=== PATIENT | male | born 1985 | race Caucasian/White ===

== ENCOUNTER 2020-07-24 12:14 | Emergency (ER) | payer BC, SELFPAY ==
--- NOTE | 2020-07-24 12:15 | XRR_ITS ---
PROCEDURE INFORMATION: Exam: XR Right Wrist Exam date and time: 07/24/2020 12:34 PM Age: 35 years old Clinical indication: Injury or trauma; Fall; Blunt trauma (contusions or hematomas); Wrist; Right TECHNIQUE: Imaging protocol: XR Right wrist. Views: 3 or more views. COMPARISON: No relevant prior studies available. FINDINGS: Bones/joints: Negative for acute bony abnormality. Soft tissues: Normal. XR/XR wrist RT min 3V* [id number] IMPRESSION: No acute findings.
[2020-07-24 12:24] VITALS: BP 114/70; PULSE 77; RESP 18; TEMP 36.8; O2SAT 98; BMI 23.3
--- NOTE | 2020-07-24 12:39 | W.ED.EXTPRO ---
HPI - Extremity Problem General: Chief complaint: Extremity Injury, Upper Stated complaint: Fall, injury to right wrist Time Seen by Provider: 07/24/20 12:19 History of Present Illness: HPI Narrative: Complains about right wrist pain times couple months. Was seen at [facility] diagnosed with carpal tunnel given a brace. Patient says he fell at work today and his wrist is hurting more now. Has complained about numbness tingling to his fingers from the start. 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 MD Complaint: extremity pain Onset (ago): month(s) Pain Consistency: intermittent Location: right and upper extremity Severity scale (1-10): 3 Quality: aching Radiation: none Relieving factors: immobilization Exacerbating factors: range of motion Associated symptoms: Reports no associated symptoms; Deny chest pain, fever(s) or rash Review of Systems Const: Denies: fever(s), chills or body aches Eyes: Denies: change in vision or blurry vision ENMT: Denies: throat pain or nasal congestion Card: Denies: chest pain or dyspnea on exertion Resp: Denies: dyspnea, productive cough or non-productive cough GI: Denies: abdominal pain, nausea or vomiting : Denies: difficulty urinating Musc: Reports: extremity pain (Right wrist) Skin/Breast: Denies: rash Neuro: Denies: headache(s) Psych: Denies: anxiety or depression Gabriele/Lymph: Denies: easy bruising Physical Exam Const: COMMON NORMALS: no acute distress, average body habitus and patient oriented x3 HENMT: COMMON NORMALS: normocephalic HEAD & SCALP: normal to inspection and normocephalic FACE & SINUS: normal facial exam Eye: COMMON NORMALS: conjunctivae normal GENERAL EYE: appearance normal, both eyes and all related structures CONJUNCTIVA: Yes conjunctivae normal Neck/C-Spine: COMMON NORMALS: no JVD Chest: COMMONS NORMALS: normal inspection of the chest Resp: COMMON NORMALS: normal respiratory effort Cardio: COMMON NORMALS: no JVD GI: INSPECTION: Yes normal to inspection Extremity: COMMON NORMALS: normal to inspection and full ROM RIGHT UPPER EXTREMITY: Yes wrist (Tender no swelling has good range of motion positive Tinel's Phalen's) Neuro: COMMON NORMALS: patient oriented x3 Course Vital Signs: Vital signs: Vital Signs Temperature 98.2 F 07/24/20 12:24 Pulse Rate 77 07/24/20 12:24 Respiratory Rate 18 07/24/20 12:24 Blood Pressure 114/70 07/24/20 12:24 Pulse Oximetry 98 07/24/20 12:24 Coding Level of Care Code 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
[2020-07-24 13:10] VITALS: BP 113/78; PULSE 73; RESP 16; O2SAT 97
--- NOTE | 2020-07-24 13:20 | PC.NURSE ---
Read and agree with assessment.
== END 2020-07-24 13:15 | disposition home or self-care (01) ==
PROVIDERS: Emergency Provider Nurse Practitioner Family; PCP Family Medicine
DX: M25.531 Pain in right wrist (principal)
CPT/HCPCS: 73110

== ENCOUNTER → 2021-02-21 09:34 | Outpatient (BNVA) | payer SELFPAY | PROVIDERS: PCP Family Medicine; Visit Provider Nurse Practitioner Family | DX: S62.397A Other fracture of fifth metacarpal bone, left hand, initial encounter for closed fracture (principal); M79.642 Pain in left hand; X58.XXXA Exposure to other specified factors, initial encounter | CPT/HCPCS: 73130 ==

== ENCOUNTER → 2021-02-23 09:37 | Outpatient (BNVA) | payer SELFPAY | PROVIDERS: PCP Family Medicine; Referring Provider Nurse Practitioner Family; Visit Provider Specialist | DX: X58.XXXA Exposure to other specified factors, initial encounter (principal) | CPT/HCPCS: 73130 ==

== ENCOUNTER 2021-11-10 21:30 | Emergency (ER) | payer MEDICAID, SELFPAY ==
[2021-11-10 21:42] VITALS: BP 122/76; PULSE 83; RESP 16; TEMP 36.9; O2SAT 97
--- NOTE | 2021-11-11 00:18 | CTR_ITS ---
PROCEDURE INFORMATION: Exam: CT Lumbar Spine Without Contrast Exam date and time: 11/11/2021 1:06 AM Age: 36 years old Clinical indication: Low back pain; Additional info: R lumbar radiculopathy TECHNIQUE: Imaging protocol: Computed tomography of the lumbar spine without contrast. Radiation optimization: All CT scans at this facility use at least one of these dose optimization techniques: automated exposure control; mA and/or kV adjustment per patient size (includes targeted exams where dose is matched to clinical indication); or iterative reconstruction. COMPARISON: No relevant prior studies available. RADIATION DOSE METRICS: Total DLP (mGy-cm): 2195.94 FINDINGS: Bones/joints: There is normal vertebral body alignment. There are normal vertebral body heights. No fracture. T12-L1: Mild disc space narrowing. Broad-based disc protrusion results in mild canal stenosis but no foraminal stenosis. L1-L2: Mild disc space narrowing. Broad-based disc protrusion minimally narrows the central canal. No foraminal stenosis. L2-L3: Mild disc space narrowing. Broad-based disc protrusion results in mild-moderate canal stenosis without foraminal stenosis. L3-L4: Mild disc space narrowing. Broad-based disc protrusion results in mild canal stenosis without foraminal stenosis. L4-L5: Mild disc space narrowing. Broad-based disc protrusion results in mild canal stenosis. Mild bilateral foraminal stenosis. L5-S1: Mild disc space narrowing. Broad-based disc protrusion results in mild canal stenosis. There is mild bilateral foraminal stenosis. Lymph nodes: Visualized but nonenlarged retroperitoneal lymph nodes. Soft tissues: Unremarkable. CT/CT lumbar spine wo con* [id number] IMPRESSION: 1. No fracture. 2. Mild multilevel degenerative disc disease.
[2021-11-11 00:26] VITALS: BP 97/71; PULSE 90; RESP 26; TEMP 37; O2SAT 97
[2021-11-11] MEDS: ketorolac 30 mg/mL INJ IM (00:49)
[2021-11-11 00:50] VITALS: RESP 22; O2SAT 97
[2021-11-11] MEDS: HYDROmorphone 1 mg/mL INJ 1 mL 2 MG IM (00:50)
[2021-11-11] MEDS: ondansetron 4 MG Tablet PO (00:50)
[2021-11-11 01:58] LABS: Add Urine Microscopic? NO; Charge for UA Resulting for Rev
[2021-11-11 02:01] LABS: Bilirubin Urine Neg (Negative); Blood Urine Neg (Negative); Glucose Urine UA Norm (Normal); Ketones Urine Negative (Negative); Leukocyte Esterase Urine Negative (Negative); Nitrate Urine Negative (Negative); Protein Urine Neg (Negative); Specific Gravity, Urine 1.025 (1.005-1.030); Urine Appearance Clear (CLEAR); Urine Color Yellow (Yellow); Urobilinogen Urine Norm (Negative); pH Urine 5 (5-7)
[2021-11-11] MEDS: predniSONE 20 mg Tablet 40 MG PO (02:52)
[2021-11-11 02:53] VITALS: BP 109/75; PULSE 70; RESP 19; O2SAT 97
[2021-11-11 02:59] VITALS: BP 109/75; PULSE 70; RESP 17; TEMP 37.2; O2SAT 97
--- NOTE | 2021-11-11 18:37 | ED_ITS ---
HPI - Back Pain/Injury General: Chief Complaint: Back Pain/Injury Stated Complaint: back injury Time Seen by Provider: 11/11/21 00:04 Source: patient History of Present Illness: 36-year-old male. He presents with significant right-sided lower back pain, radiating to his right hip and thigh. He awoke with this yesterday he says. He does not remember any specific injury. He denies any fever. No chills or sweats. MD elicited complaint: back pain Pertinent past history: prior back pain Onset (ago): hour(s) Timing: constant Severity: severe Similar Symptoms Previously: Yes Quality: dull and stabbing Location: lumbar spine Radiation: right upper leg Exacerbating factors: movement Relieving factors: none Context: unknown Associated symptoms: Reports difficulty walking and nausea; Deny abdominal pain, arthralgias, chills, dysuria, fecal incontinence, fever(s), numbness, vomiting or weakness Treatments prior to arrival: NSAIDS Review of Systems Const: Denies: fever(s) or chills Card: Denies: chest pain Resp: Denies: dyspnea GI: Reports: nausea; Denies: abdominal pain, vomiting or fecal incontinence : Denies: dysuria Skin/Breast: Denies: rash Neuro: Reports: difficulty walking [facility] ED PFSH: Social History Quit status (tobacco): not considering quitting Second hand smoke exposure: Yes Alcohol intake: current Alcohol intake frequency: holidays/special occasions only Desire information about alcohol rehabilitation?: No Desire information about substance/drug rehabilitation?: No Physical Exam Const: GENERAL APPEARANCE: cooperative and well kempt; not comfortable ORIENTATION/CONSCIOUSNESS: Yes awake, Yes oriented to person, Yes oriented to place and Yes oriented to time HENMT: COMMON NORMALS: normocephalic, atraumatic and Normal external nose present HEAD & SCALP: normocephalic and atraumatic FACE & SINUS: normal fa cial exam and face symmetric NOSE: Normal external nose present Eye: COMMON NORMALS: Equal, round and reactive pupils present and EOMs intact bilaterally PUPIL: Yes Equal, round and reactive pupils present Neck/C-Spine: GENERAL: Yes trachea midline Resp: COMMON NORMALS: normal respiratory effort, No retractions, No use of accessory muscles and clear to auscultation bilaterally AUSCULTATION: clear to auscultation bilaterally Cardio: COMMON NORMALS: regular rate and regular rhythm RATE: regular rate RHYTHM: regular rhythm GI: COMMON NORMALS: Normal to inspection, nondistended, normoactive bowel sounds present and Soft to palpation PALPATION: Yes Soft to palpation : COMMON NORMALS: Yes no CVA tenderness BLADDER/KIDNEY EXAM: Yes no CVA tenderness Back/Pelvis: COMMON NORMALS: no CVA tenderness LUMBAR SPINE/LOWER BACK: Yes normal to inspection, Yes ROM limited, Yes lumbar spinal tenderness, Yes paraspinal muscle tenderness and Yes straight leg raise positive right Extremity: COMMON NORMALS: normal to inspection Neuro: [place] COMA SCALE: document GCS findings [place] coma scale eye ope berna: Spontaneous [place] coma scale verbal response: Orientated [place] coma scale motor response: [place]bey commands [place] coma scale total score: 15 SENSORIUM/ORIENTATION: Yes oriented to person, Yes oriented to place and Yes oriented to time SPEECH: speech normal Psych: APPEARANCE: Yes well kempt Course Vital Signs: Vital signs: Vital Signs Temperature 98.9 F 11/11/21 02:59 Pulse Rate 70 11/11/21 02:59 Respiratory Rate 17 11/11/21 02:59 Blood Pressure 109/75 11/11/21 02:59 Pulse Oximetry 97 11/11/21 02:59 MDM - Back Pain/Injury Medical Decision Making No fever, no hematuria. Lumbar spine CT reveals only mild-moderate stenosis. Treat symptoms, outpt fu. Labs Radiology Impressions Lumbar Spine CT 11/11/21 00:18 IMPRESSION: 1. No fracture. 2. Mild multilevel degenerative disc disease. Laboratory Results Urine Color Yellow (Yellow) 11/11/21 01:45 Urine Appearance Clear (CLEAR) 11/11/21 01:45 Urine pH 5 (5-7) 11/11/21 01:45 Ur Specific [place] 1.025 (1.005-1.030) 11/11/21 01:45 Urine Protein Neg (Negative) 11/11/21 01:45 Urine Glucose (UA) Norm (Normal) 11/11/21 01:45 Urine Ketones Negative (Negative) 11/11/21 01:45 Urine Blood Neg (Negative) 11/11/21 01:45 Urine Nitrate Negative (Negative) 11/11/21 01:45 Urine Bilirubin Neg (Negative) 11/11/21 01:45 Urine Urobilinogen Norm mg/dL (Negative) 11/11/21 01:45 Ur Leukocyte Esterase Negative (Negative) 11/11/21 01:45 Discharge Plan Discharge Patient Disposition: Home Clinical Impression: Acute lumbar radiculopathy Condition: Stable Prescriptions: New Percocet 7.5-325 mg tablet 1 tab PO Q6H PRN (Reason: pain) Qty: 10 0RF Medrol (Callum) 4 mg tablets,dose pack See Rx Instructions .ROUTE .COMPLEX Qty: 21 0RF Rx Instructions: orally per package directions No Action meloxicam 15 mg tablet 15 mg PO DAILY Qty: 30 0RF Rx Instructions: Take one tablet once daily tramadol 50 mg tablet 50 mg PO Q6H PRN (Reason: pain) Qty: 30 0RF Discharge Orders: Discharge ED (Routine); Ordered 11/11/21 Ordered By: Venkat Gutiérrez Patient Instructions: Lumbar Radiculopathy (ED), Opioid Safety Activity Restrictions/Additional Instructions: Return for loss of function of your bowel or bladder control, numbness to your genital region, any other concerning symptoms. We will ask case management to make a follow-up appointment for you regarding further treatment if needed. Medications as directed. Only take pain medication for severe pain. 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
== END 2021-11-11 03:01 | disposition home or self-care (01) ==
PROVIDERS: Emergency Provider Emergency Medicine
DX: M54.16 Radiculopathy, lumbar region (principal); Z77.22 Contact with and (suspected) exposure to environmental tobacco smoke (acute) (chronic)
CPT/HCPCS: 72131; 81003; 96372; 99284; J1170; J1885; J7512; Q0162